=== PATIENT | male | born 1930 | race Caucasian/White ===

== ENCOUNTER 2017-09-18 15:40 | Emergency (ER) | payer MEDICARE, BC ==
[2017-09-18 15:57] VITALS: BP 131/66
--- NOTE | 2017-09-18 17:19 | ER Document Report ---
ED Medical Screen (RME) - General Chief Complaint: Skin Tear(s) Stated Complaint: SKIN PROBLEM/BLEEDING Time Seen by Provider: 09/18/17 15:55 Notes: pt saw derm yesterday and had lesion removed. wont stop bleeing. TRAVEL OUTSIDE OF THE [place] IN LAST 30 DAYS: No - Related Data Allergies/Adverse Reactions: No Known Allergies Allergy (Unverified 09/18/17 15:57) Past Medical History Renal/ Medical History: Denies: Hx Peritoneal Dialysis Physical Exam - Vital signs Vitals: Temp Pulse Resp BP Pulse Ox 97.8 F 80 16 131/66 H 100 09/18/17 15:50 09/18/17 15:50 09/18/17 15:50 09/18/17 15:50 09/18/17 15:50 Course - Vital Signs Vital signs: Temp Pulse Resp BP Pulse Ox 97.8 F 80 16 131/66 H 100 09/18/17 15:50 09/18/17 15:50 09/18/17 15:50 09/18/17 15:50 09/18/17 15:50
[2017-09-18] MEDS ORDERED: TRANEXAMIC ACID INJ/PF 1,000 MG/10 ML SDV IV ONE (17:35)
[2017-09-18] MEDS ORDERED: SILVER NITRATE APPLICATOR 1 APPLIC STICK..EA. 10/PACKAGE TOP ONE (17:37)
--- NOTE | 2017-09-18 17:43 | ER Document Report ---
ED Wound - General Chief Complaint: Skin Tear(s) Stated Complaint: SKIN PROBLEM/BLEEDING Time Seen by Provider: 09/18/17 15:55 Notes: The patient is an 87-year-old male, on baby aspirin, presents with bleeding from a scab on the top of his head that was removed by a planning specialist in [place] yesterday. Patient is using pressure dressing, but the bleeding is continuing. He denies lightheadedness, headache, chest pain or shortness of breath. TRAVEL OUTSIDE OF THE [place] IN LAST 30 DAYS: No - Related Data Allergies/Adverse Reactions: No Known Allergies Allergy (Unverified 09/18/17 15:57) Past Medical History - General Information source: Patient - Social History Smoking Status: Unknown if Ever Smoked Family History: Reviewed & Not Pertinent Patient has suicidal ideation: No Patient has homicidal ideation: No Renal/ Medical History: Denies: Hx Peritoneal Dialysis Review of Systems - Review of Systems Notes: REVIEW OF SYSTEMS: CONSTITUTIONAL: -fevers, -chills EENT: -eye pain, -difficulty swallowing, -nasal congestion CARDIOVASCULAR: -chest pain, -syncope. RESPIRATORY: -cough, -SOB GASTROINTESTINAL: -abdominal pain, -nausea, -vomiting, -diarrhea GENITOURINARY: -dysuria, -hematuria MUSCULOSKELETAL: -back pain, -neck pain SKIN: +bleeding from head wound HEMATOLOGIC: -easy bruising or bleeding. LYMPHATIC: -swollen, enlarged glands. NEUROLOGICAL: -altered mental status or loss of consciousness, -headache, - neurologic symptoms PSYCHIATRIC: -anxiety, -depression. ALL OTHER SYSTEMS REVIEWED AND NEGATIVE. Physical Exam - Vital signs Vitals: Temp Pulse Resp BP Pulse Ox 97.8 F 80 16 131/66 H 100 09/18/17 15:50 09/18/17 15:50 09/18/17 15:50 09/18/17 15:50 09/18/17 15:50 - Notes Notes: PHYSICAL EXAMINATION: GENERAL: Well-appearing, well-nourished and in no acute distress. HEAD: Oozing from 3 cm circular wound on top of head. EYES: Pupils equal round and reactive to light, extraocular movements intact, sclera anicteric, conjunctiva are normal. ENT: nares patent, oropharynx clear without exudates. Moist mucous membranes. NECK: Normal range of motion, supple without lymphadenopathy LUNGS: Breath sounds clear to auscultation bilaterally and equal. No wheezes rales or rhonchi. HEART: Regular rate and rhythm without murmurs ABDOMEN: Soft, nontender, normoactive bowel sounds. No guarding, no rebound. No masses appreciated. EXTREMITIES: Normal range of motion, no pitting or edema. No cyanosis. NEUROLOGICAL: Cranial nerves grossly intact. Normal speech, normal gait. Normal sensory and motor exams. PSYCH: Normal mood, normal affect. Course - Re-evaluation Re-evalutation: After TXA, silver nitrate, Quik clot, infiltration of wound with lidocaine and epinephrine and thrombin, the bleeding finally stopped. Told patient to stop aspirin for the next few days. Given very strict return precautions and he understands. - Vital Signs Vital signs: Temp Pulse Resp BP Pulse Ox 97.8 F 80 16 131/66 H 100 09/18/17 15:50 09/18/17 15:50 09/18/17 15:50 09/18/17 15:50 09/18/17 15:50 Critical Care Note - Critical Care Note Total time excluding time spent on procedures (mins): 55 Discharge - Discharge Clinical Impression: Bleeding from wound Condition: Stable Disposition: HOME, SELF-CARE Additional Instructions: Keep the dressing in place until tomorrow. Do not take aspirin for the next 2 days. Return to the ER if there is worsening bleeding. Forms: Elevated Blood Pressure
[2017-09-18] MEDS ORDERED: LIDOCAINE 1%/EPINEPHRINE INJ 20 ML VIAL INJ ONE (18:36)
[2017-09-18] MEDS ORDERED: THROMBIN (BOVINE) TOPICAL 20000 UNIT VIAL TP ONE (18:55)
[2017-09-18] MEDS ORDERED: THROMBIN (BOVINE) TOPICAL 5000 UNIT VIAL TP ONE (18:59)
== END 2017-09-18 19:25 | disposition home or self-care (01) ==
LOC: ER 15:40
DX: L76.21 Postprocedural hemorrhage of skin and subcutaneous tissue following a dermatologic procedure (principal); Y83.8 Other surgical procedures as the cause of abnormal reaction of the patient, or of later complication, without mention of misadventure at the time of the procedure; Z79.82 Long term (current) use of aspirin
CPT/HCPCS: 99284; 96374; J3490 ×3